=== PATIENT | male | born 1960 | race Caucasian/White ===

== ENCOUNTER 2017-11-17 13:56 | Emergency (ER) | payer BC, OTHER ==
[~2017-11-17] VITALS: Ht 182.9 cm; Wt 110.0 kg
[~2017-11-17 13:56] MED LIST: DOXY100T PO; HYDR10TA16 PO; SIMV20TA PO
[2017-11-17 14:20] VITALS: BP 140/73; PULSE 66; RESP 15; TEMP 98.3; O2SAT 96
--- NOTE | 2017-11-17 17:08 | PD ---
HPI Chief Complaint: Back/ Neck Pain or Injury Time Seen by Provider: 16:40 Travel History International Travel<30 days: No Contact w/Intl Traveler<30days: No Traveled to known affect area: No History of Present Illness HPI 57-year-old male presents to emergency department with complaint of low back pain, mainly on the right side, that radiates down his leg after he fell on about a week ago and then 70 fell on top of him. He is requesting an MRI. He has history of low back pain 6-8 years ago and had a herniated disc. Says he saw chiropractor at that time and was adjusted and has had no problems since, until last Saturday when the injury occurred. Denies IV drug use or cancer. Denies encopresis, incontinence, saddle anesthesias. Denies paresthesias, loss of sensation, decreased range of motion, decreased strength to bilateral lower extremities. Denies fever, vomiting, abdominal pain, change in urine or stool. Saw chiropractor on Saturday and was told if symptoms persist he would need an MRI. Has tried Aleve and rubbing cannabis rub to the area for symptom management. Symptom are moderate in severity. Worse with movement. Better at rest. Primary care provider is Dr. Larose. No known allergies. History of hypercholesterolemia. Has no other medical complaints. No other modifying factors or associated signs and symptoms. PFSH Past Medical History High Cholesterol: Yes Musculoskeletal: Yes (RIGHT HIP PAIN) Social History Alcohol Use: Yes (3 BEER/WINE A DAY) Tobacco Use: No (QUIT 8 YEARS AGO) Substance Use: No Allergies-Medications (Allergen,Severity, Reaction): Coded Allergies: No Known Allergies (Unverified , 11/15/12) Reported Meds & Prescriptions Reported Meds & Active Scripts Active Reported Lortab 10/500 (Acetaminophen/Hydrocodone Bitart) 10 Mg/500 Mg Tab 1 Tab PO BIDPRN FOR PAIN Doxycycline Hyclate 100 Mg Tab 100 Mg PO DAILY Simvastatin 20 Mg Tab 20 Mg PO HS Review of Systems Except as stated in HPI: all other systems reviewed are Neg Physical Exam Narrative GENERAL: Well-nourished, well-developed male patient, in no acute distress; afebrile, nontoxic-appearing SKIN: Warm and dry. HEAD: Atraumatic. Normocephalic. EYES: Pupils equal and round. No scleral icterus. No injection or drainage. ENT: Mucosa pink and moist. Airway patent. NECK: Trachea midline. CARDIOVASCULAR: Regular rate. RESPIRATORY: No accessory muscle use. GASTROINTESTINAL: Rounded. MUSCULOSKELETAL: Bilateral lower extremities supple and non-tense with 2+ pedal pulses and sensory intact; with full range of motion and 5/5 strength. 2 + DTRs bilaterally. Active dorsiflexion and extension of bilateral feet. Right straight leg raise is positive for low back pain. Ambulatory in room with normal gait. Sitting up in bed at 90. No obvious deformities. No clubbing. No cyanosis. No edema. BACK: No midline point tenderness on palpation of the lumbar spine. Tenderness on palpation of right lumbar paraspinal area. No obvious deformities. NEUROLOGICAL: Awake and alert. Oriented 3. No obvious cranial nerve deficits. Motor grossly within normal limits. Normal speech. Moves all extremities. 5/5 strength to all extremities. Sensory intact. PSYCHIATRIC: Appropriate mood and affect; insight and judgment normal. Data Data Last Documented VS Vital Signs Date Time Temp Pulse Resp B/P (MAP) Pulse Ox O2 Delivery O2 Flow Rate FiO2 11/17/17 14:20 98.3 66 15 140/73 (95) 96 Orders Orders Spine, Lumbar - Ltd (Ap & Lat) (11/17/17 17:05) [facility] Medical Decision Making Medical Screen Exam Complete: Yes Emergency Medical Condition: Yes Medical Record Reviewed: Yes Differential Diagnosis Right-sided low back pain with sciatica, low back strain, muscle spasm of back Narrative Course 57-year-old male physical exam consistent with right-sided low back pain with sciatica and low back strain. Patient requesting MRI. Denies encopresis, incontinence, saddle anesthesias. Denies IV drug use or cancer. Neuro exam is unremarkable. No midline tenderness on palpation of the lumbar spine. Patient ambulatory in the room with a normal gait. I will x-ray the lumbar spine to rule out acute findings. 1756: Lumbar spine x-ray concludes: Lumbar Spine X-Ray 11/17/17 1705 Signed Impressions: Service Date/Time: Friday, November 17, 2017 17:27 - CONCLUSION: Severe lower lumbar degenerative disc disease and facet arthropathy Grade 1-2 degenerative anterolisthesis at L4-5 No evidence of acute fracture or destructive changes. Corby Myers MD X-ray findings discussed with patient and a copy of the x-ray was provided to the patient. Instructed patient to follow-up outpatient for MRI. Discussed alarming symptoms associated with low back pain to return to the emergency department. Instructed patient to follow up with primary care provider. Patient verbalizes understanding and agreement with treatment plan. Patient is medically cleared and stable for discharge. Discussed reasons to return to the emergency department. Patient agrees with treatment plan. The patients vital signs are stable and the patient is stable for outpatient follow-up and treatment. Patient discharged home, stable and in no acute distress. Diagnosis Primary Impression: Right-sided low back pain with sciatica Qualified Codes: M54.41 - Lumbago with sciatica, right side Additional Impressions: Low back strain Qualified Codes: S39.012A - Strain of muscle, fascia and tendon of lower back , initial encounter Degenerative disc disease, lumbar Referrals: Neurologist Primary Care Physician Patient Instructions: Acute Low Back Pain (ED), Degenerative Disc Disease (ED) , General Instructions, Low Back Strain (ED), Muscle Spasm (ED), Sciatica (ED) Additional Instructions: Tylenol or ibuprofen as directed and as needed for pain Robaxin as prescribed and as needed for muscle spasms Heating pad and/or ice to affected area to reduce pain Avoid aggravating activities; increase activity as tolerated Follow-up with primary care provider Return to emergency department immediately with worsening of symptoms Med/Other Pt SpecificInfo: Prescription(s) given Scripts Methylprednisolone Dosepak (Medrol Dosepak) 4 Mg Dspk 4 MG PO DIRECTED, #1 DSPK 0 Refills Per Pharmacist direction Prov: Shaneka Bunn 11/17/17 Ibuprofen (Ibuprofen) 800 Mg Tab 800 MG PO Q6HR Y for PAIN, #30 TAB 0 Refills Prov: Shaneka BunnP 11/17/17 Tramadol (Tramadol) 50 Mg Tab 50 MG PO Q4H Y for PAIN, #8 TAB 0 Refills Prov: Shaneka Bunn 11/17/17 Methocarbamol (Robaxin) 500 Mg Tab 500 MG PO QID Y for MUSCLE SPASM, #30 TAB 0 Refills Prov: Shaneka Bunn 11/17/17 Disposition: 01 DISCHARGE HOME Condition: Stable Shaneka Bunn Nov 17, 2017 17:08
--- NOTE | 2017-11-17 17:45 | RADRPT ---
EXAM DATE/TIME: 11/17/2017 17:27 [facility] COMPARISON: No previous studies available for comparison. INDICATIONS : Back pain from trauma sustained in a fall on a boat one week ago. MEDICAL HISTORY : None. SURGICAL HISTORY : Hip arthroplasty ENCOUNTER: Initial ACUITY: 1 week PAIN SCORE: 10/10 LOCATION: Bilateral lower back FINDINGS: Two view examination was performed. L5 transitional vertebral body is noted. Severe degenerative disc disease is identified at L3-4, L4-5 and L5-S1. There is marked disc space na rrowing with endplate cirrhosis and marginal spondylosis. A grade 1-2 anterolisthesis is noted of L4 and L5. There is severe bilateral facet arthropathy. There is no evidence of acute compression fracture. There are no destructive changes. CONCLUSION: Severe lower lumbar degenerative disc disease and facet arthropathy Grade 1-2 degenerative anterolisthesis at L4-5 No evidence of acute fracture or destructive changes. Corby Myers MD on November 17, 2017 at 17:41 Board Certified Radiologist. This report was verified electronically.
[2017-11-17] MEDS ORDERED: ROBA500T PO (18:02)
[2017-11-17] MEDS ORDERED: MEDR4PAK PO (18:02)
[2017-11-17] MEDS ORDERED: TRAM50TA PO (18:02)
[2017-11-17] MEDS ORDERED: IBUP1TAB7 PO (18:02)
== END 2017-11-17 18:15 | disposition home or self-care (01) ==
LOC: NEPD 13:56
DX: M54.41 Lumbago with sciatica, right side (principal); S39.012A Strain of muscle, fascia and tendon of lower back, initial encounter; W19.XXXA Unspecified fall, initial encounter; M51.36 Other intervertebral disc degeneration, lumbar region; E78.00 Pure hypercholesterolemia, unspecified; Z87.891 Personal history of nicotine dependence
CPT/HCPCS: 72100; 99283